=== PATIENT | female | born 1975 | race Caucasian/White ===

== ENCOUNTER 2023-01-21 08:52 | Outpatient (OUT) | payer MEDICAID, SELFPAY ==
--- NOTE | 2023-01-21 09:06 | MM_ITS ---
Patient: CORTES LOOMIS Exam Date: 01/21/2023 : 1975 Gender:F Ordering : ASHLEY VILLATORO Admission #: [id number] Family : Order #: [id number] CLICK HERE TO VIEW EXAM RADIOLOGY REPORT PROCEDURE: MM TOMOSYNTHESIS SCREENING BI COMPARISON: None. INDICATIONS: Screening Calculator Name NCI Breast Cancer Risk Assessment Tool 5 Year Breast Cancer Risk 0.80% Lifetime Breast Cancer Risk 7.70% Personal Breast Cancer No Personal Ovarian Cancer No Treatments None Family Cancers Grandmother-maternal with lung cancer at age 69; Grandmother-paternal with lung cancer at age 72. LOCATION: The [facility] BREAST COMPOSITION: Scattered areas fibroglandular density. FINDINGS: DIAGNOSTIC CATEGORY 2--BENIGN FINDING: RIGHT BREAST: No significant suspicious finding. Scattered benign-appearing calcifications are present. LEFT BREAST: No significant suspicious finding. Scattered benign-appearing calcifications are present. Scattered benign-appearing lymph nodes are present. RECOMMENDATIONS: ROUTINE MAMMOGRAM AND CLINICAL EVALUATION IN 12 MONTHS. PLEASE NOTE: A NORMAL MAMMOGRAM DOES NOT EXCLUDE THE POSSIBILITY OF BREAST CANCER. A CLINICALLY SUSPICIOUS PALPABLE LUMP SHOULD BE BIOPSIED. Dictated by: Bishop Little M.D. on 01/21/2023 at 15:19 Approved by: Bishop Little M.D. on 01/21/2023 at 15:21
--- NOTE | 2023-01-21 09:12 | CT_ITS ---
The [address] [address] Patient Name: CORTES LOOMIS MRN: [id number] date: 1975 Sex: F Assigned Patient Location: CT Current Patient Location: CT Accession/Order Number: [id number] Exam Date: 01/21/2023 09:15 Report Date: 01/21/2023 10:11 At the request of: ASHLEY PRICE Procedure: CT lung screening low-dose EXAMINATION: CT lung screening low-dose HISTORY: Encounter For Screening For Malignant Neoplasm Z12.31 COMPARISON: No relevant comparison available. TECHNIQUE: Axial, Coronal, and Sagittal images were created without the administration of IV contrast material. Dose reduction techniques were achieved by using automated exposure control and/or adjustment of mA and/or kV according to patient size and/or use of iterative reconstruction technique. FINDINGS: LUNGS: 4 mm partially calcified nodule within left lung apex. 3 mm nodule within left lower lobe superior segment. Mild emphysematous changes bilaterally. No acute infiltrates. PLEURA: No mass, effusion, or pneumothorax. VASCULATURE: No abnormality. ALANA: No mass or pathologic adenopathy. MEDIASTINUM: No mass or pathologic adenopathy. CARDIAC: No enlargement, pericardial thickening, or significant calcification. AORTA: No aneurysm or dissection. CHEST WALL: No mass or axillary adenopathy BONES: No bone lesion or fracture. LIMITED ABDOMEN: No suspicious findings. Limited images of the upper abdomen. OTHER: Negative. IMPRESSION: 1. Lung-RADS 2- Benign Appearance or Behavior. Nodules with a very low likelihood of becoming a clinically active cancer due to size or lack of growth. Follow-up CT Chest in 1 year. Electronically authenticated by: MART MILES Date: 01/21/2023 10:11
== END 2023-01-21 08:53 ==
LOC: CT 08:58
PROVIDERS: PCP Nurse Practitioner Primary Care; Visit Provider Nurse Practitioner Primary Care
DX: Z12.31 Encounter for screening mammogram for malignant neoplasm of breast (principal); Z12.2 Encounter for screening for malignant neoplasm of respiratory organs; R91.8 Other nonspecific abnormal finding of lung field
CPT/HCPCS: 71271; 77063; 77067

== ENCOUNTER 2023-01-27 12:44 | Outpatient (OUT) | payer MEDICAID, SELFPAY ==
--- NOTE | 2023-01-27 12:59 | US_ITS ---
The [address] [address] Patient Name: CORTES LOOMIS MRN: [id number] date: 1975 Sex: F Assigned Patient Location: Current Patient Location: US Accession/Order Number: [id number] Exam Date: 01/27/2023 13:02 Report Date: 01/27/2023 14:25 At the request of: NON-STAFF PHYSICIAN Procedure: US pelvis w/ transvaginal EXAMINATION: US pelvis w/ transvaginal HISTORY: Pelvic Mass R19.00 ; increase in size of palpable pelvic mass COMPARISON: No relevant comparison available. TECHNIQUE: Transabdominal and/or transvaginal sonographic examination was performed as indicated by examination type. FINDINGS: UTERUS: Large, masslike heterogeneous uterus. Uterus size: 18.5 x 14.7 x 11.1 cm ENDOMETRIUM: Could not be from uterus/uterine mass. RIGHT OVARY: Not seen. LEFT OVARY: Small, atrophic, and containing calcifications. Duplex Doppler demonstrates normal waveform and flow; resistive index 0.4. Ovary size: 1.8 x 1.0 x 1.1 cm CUL-DE-SAC: Unremarkable. No significant free fluid. BLADDER: Unremarkable. OTHER: None. IMPRESSION: 1. Large heterogenous masslike uterus suspicious for neoplasm. It is uncertain whether this represents a myometrial or endometrial abnormality. Consider CT abdomen and pelvis with IV and oral contrast for further evaluation. 2. Unremarkable left ovary. 3. Right ovary could not be identified. Electronically authenticated by: MART MILES Date: 01/27/2023 14:25
== END 2023-01-27 12:45 ==
LOC: US 12:46
PROVIDERS: PCP Nurse Practitioner Primary Care
DX: R19.00 Intra-abdominal and pelvic swelling, mass and lump, unspecified site (principal)
CPT/HCPCS: 76830; 76856

== ENCOUNTER 2023-02-01 07:06 | Outpatient (OUT) | payer MEDICAID, SELFPAY ==
--- NOTE | 2023-02-01 07:15 | CT_ITS ---
[address] [address] Patient Name: CORTES LOOMIS MRN: [id number] date: 1975 Sex: F Assigned Patient Location: CT Current Patient Location: CT Accession/Order Number: [id number] Exam Date: 02/01/2023 08:40 Report Date: 02/01/2023 15:30 At the request of: NON-STAFF PHYSICIAN Procedure: CT abdomen pelvis wo/w con EXAMINATION: CT abdomen pelvis wo/w con HISTORY: Pelvic Mass R19.00 ; chronic right lower quadrant mass COMPARISON: Ultrasound pelvis 01/27/2023 TECHNIQUE: Axial, Coronal, and Sagittal images were obtained without and/or with IV contrast as indicated by examination type. Dose reduction techniques were achieved by using automated exposure control and/or adjustment of mA and/or kV according to patient size and/or use of iterative reconstruction technique. FINDINGS: LUNG BASES: No visible pulmonary or pleural disease. LIVER: No enlargement, atrophy, suspicious density, or significant focal lesion. BILIARY: No dilatation or calcification. PANCREAS: No lesion, fluid collection, or abnormal duct dilatation. SPLEEN: No enlargement or focal lesion. ADRENALS: No mass or enlargement. KIDNEYS: No mass, obstruction, or calcification. BOWEL/MESENTERY: Mild wall thickening of the sigmoid colon multiple small diverticula; no surrounding inflammatory changes or bowel obstruction. AORTA/VASCULAR: No aneurysm or dissection. RETROPERITONEUM: No mass or adenopathy. LYMPH NODES: No adenopathy. URINARY BLADDER: No visible focal wall thickening, lesion, or calculus. PELVIC ORGANS: Heterogeneously enhancing 13.8 x 14.9 x 11.6 cm mass projecting cephalad and appearing to arise from the uterus. ABDOMINAL WALL: No mass or hernia. BONES: No bony lesion or fracture. OTHER: Negative. IMPRESSION: 1.Large 14.9 cm heterogeneously enhancing uterine mass of uncertain etiology; but suspicious for neoplasm. 2. Sigmoid diverticulosis, and likely changes from chronic diverticulitis. 3. No lymphadenopathy or suspicious findings to suggest metastatic disease. Electronically authenticated by: MART MILES Date: 02/01/2023 15:30
== END 2023-02-01 07:07 ==
LOC: CT 07:08
PROVIDERS: PCP Nurse Practitioner Primary Care
DX: R19.00 Intra-abdominal and pelvic swelling, mass and lump, unspecified site (principal); K57.30 Diverticulosis of large intestine without perforation or abscess without bleeding
CPT/HCPCS: 74178; Q9967